=== PATIENT | male | born 1990 | race Two or more races ===

== ENCOUNTER 2018-02-19 17:23 | Emergency (ER) | payer SELFPAY ==
[2018-02-19] MEDS ORDERED: AMPICILLIN SOD/SULBACTAM 3 GM VIAL IV ONE (18:10)
--- NOTE | 2018-02-19 18:10 | ER Document Report ---
ED General - General Stated Complaint: ABCESS Time Seen by Provider: 02/19/18 17:58 Mode of Arrival: Ambulatory Information source: Patient, Legal Guardian, [facility] Records Notes: 27-year-old male with no reported past medical history presents in police custody from shelter with complaint of left-sided facial swelling that started 3 weeks prior to arrival. Patient states that he has associated pain, trismus, difficulty swallowing, chills, myalgias. Patient has not taken any medication for this. TRAVEL OUTSIDE OF THE [place] IN LAST 30 DAYS: No - HPI Onset: Other - 3 weeks Onset/Duration: Gradual, Persistent, Worse Quality of pain: Throbbing Severity: Moderate Associated symptoms: Body/muscle aches, Fever, Sore throat Exacerbated by: Denies Relieved by: Denies Similar symptoms previously: No Recently seen / treated by doctor: No - Related Data Allergies/Adverse Reactions: No Known Allergies Allergy (Verified 03/16/15 16:44) Past Medical History - General Information source: Patient, Law Enforcement, [facility] Records - Social History Smoking Status: Current Every Day Smoker Cigarette use (# per day): Yes - 2 Smoking Education Provided: Yes Frequency of alcohol use: None Drug Abuse: None Lives with: Other Family History: Reviewed & Not Pertinent - Medical History Medical History: Negative - Immunizations Hx Diphtheria, Pertussis, Tetanus Vaccination: Yes Review of Systems - Review of Systems Constitutional: Chills, Fever, Malaise EENT: Ear pain, Throat pain, Difficulty swallowing, Throat swelling, Mouth pain , Mouth swelling Cardiovascular: denies: Chest pain Respiratory: denies: Cough Gastrointestinal: denies: Nausea, Vomiting Genitourinary: denies: Dysuria Musculoskeletal: denies: Back pain, Muscle stiffness Skin: denies: Rash Hematologic/Lymphatic: No symptoms reported Neurological/Psychological: No symptoms reported -: Yes All other systems reviewed and negative Physical Exam - Vital signs Vitals: Temp Pulse Resp BP Pulse Ox 97.9 F 97 18 130/81 H 97 02/19/18 21:58 02/19/18 21:58 02/19/18 21:58 02/19/18 21:58 02/19/18 21:58 - Notes Notes: PHYSICAL EXAMINATION: GENERAL: Well-appearing, well-nourished and in no acute distress. HEAD: Atraumatic, normocephalic. EYES: Pupils equal round and reactive to light, extraocular movements intact, sclera anicteric, conjunctiva are normal. ENT: Nares patent, left-sided facial swelling, induration without fluctuance. Trismus. Fullness of the upper neck. no sublingual edema. no dental abscess/ fracture. no gum disease. NECK: Normal range of motion, supple with lymphadenopathy. No stridor LUNGS: Breath sounds clear to auscultation bilaterally and equal. No wheezes rales or rhonchi. HEART: Regular rate and rhythm without murmurs ABDOMEN: Soft, nontender, nondistended abdomen. No guarding, no rebound. No masses appreciated. Musculoskeletal: Normal range of motion, no pitting or edema. No cyanosis. NEUROLOGICAL: Cranial nerves grossly intact. Normal speech, normal gait. Normal sensory, motor exams PSYCH: Normal mood, normal affect. SKIN: Warm, Dry, normal turgor, no rashes or lesions noted. Course - Re-evaluation Re-evalutation: 02/20/18 18:42 27 y/o male presents with several days of dental pain, facial swelling. He is afebrile and well appearing. He does have signifcant left sided facial and neck swelling as well as mild trismus. Exam is without sublingual edema or dental infection. He is handling his secrertions and has no pain with ROM of the neck. He does not appear toxic, he is tolerating food and fluids. Laboratory 02/19/18 02/19/18 18:15 18:15 WBC 13.7 H RBC 5.75 H Hgb 17.1 H Hct 49.6 MCV 86 MCH 29.7 MCHC 34.4 RDW 12.8 Plt Count 283 Seg Neutrophils % 79.0 H Lymphocytes % 11.1 L Monocytes % 9.2 Eosinophils % 0.2 Basophils % 0.5 Absolute Neutrophils 10.8 H Absolute Lymphocytes 1.5 Absolute Monocytes 1.3 Absolute Eosinophils 0.0 Absolute Basophils 0.1 Sodium 140.5 Potassium 4.2 Chloride 100 Carbon Dioxide 23 Anion Gap 18 BUN 16 Creatinine 0.88 Est GFR ( Amer) > 60 Est GFR (Non-Af Amer) > 60 Glucose 81 Calcium 9.6 ALLERGIES No Known Allergies Allergy (Verified 03/16/15 16:44) AMBULATORY ORDERS Clindamycin HCl [Cleocin 300 mg Capsule] 600 mg PO Q6 #168 cap 02/19/18 Ibuprofen [Motrin 600 Mg Tablet] 600 mg PO TID #30 tablet 02/19/18 CLINICAL DATA Isolation Standard Condition Good Visit Reason ABCESS Language Syriac DISCHARGE ED Provider: JENNYFER BOSCH Status: Discharge Time Seen by Provider: 02/19/18 17:58 Condition: Good Triaged At: 02/19/18 17:30 Emergency Discharge Date/Time: 02/19/18 22:00 Emergency Discharge Disposition: OTHER Clinical Impression Facial infection Toothache Emergency Discharge Comment: Discharge Intervention Last Done Vital Signs (ED) 02/19/18 21:58 Query Result Temperature 97.9 F Temperature Source Oral Left Brachial -Pulse Rate 97 -Pulse Assessment Method Automatic Cuff Respiratory Rate 18 O2 Sat by Pulse Oximetry 97 Oxygen Delivery Method (includes room Room Air air) Left Upper Arm -Blood Pressure 130/81 -Blood Pressure Mean 97 -Blood Pressure Position Supine Discharge Documentation 02/19/18 22:00 Query Result Condition at discharge Improved Catheter clear to visual inspection Yes Pain Level 4 Vital signs performed within 30 minutes Yes of discharge? DC Transport Method Personal Vehicle DC Method Ambulated Good number for pt to be reached at patient in custody of [facility] Best time of day to call n/a Discharge instructions given to [facility] [place] Alvarado Limon Verbalized understanding of discharge Yes: discussed with [facility] instructions [place] Notes discharge papers and Rx given to [place]; patient calm and cooperative at time of dispo. Left Without Being Seen (LWBS) Left Against Medical Advice (AMA)/Eloped Instructions: Cellulitis ([facility]) Clindamycin ([facility]) Toothache ([facility]) Stand-Alone Forms: Prescriptions: Clindamycin HCl [Cleocin 300 mg Capsule] JENNYFER BOSCH Ibuprofen [Motrin 600 Mg Tablet] JENNYFER BOSCH Visit Report - Forms: - Referrals: - Additional text: If you are unable to take your antibiotics she must return immediately to the emergency room. 02/19/18 17:23 KAM SMITH ETHNICITY New Value: 02/19/18 17:23 KAM SMITH Old Value: New Value: 02/19/18 17:23 KAM SMITH NOP DATES: New Value: 03/16/15 02/19/18 17:23 KAM SMITH Where were you born? (State if in [place], Country if not) New Value: [place] 02/19/18 17:23 SARAHKAM New Family History New Value: Reviewed & Not Pertinent 02/19/18 17:23 SARAHKAM Does Patient have a Living Will on file? New Value: No 02/19/18 17:23 SARAHKAMJILLIAN Gold Does Patient have a Power of Interior Design Director on file? New Value: No 02/19/18 17:23 KAM SMITH Hx Diphtheria, Pertussis, Tetanus Vaccination New Value: Yes 02/19/18 17:23 SARAHKAM Preferred Language To Receive Medical Services New Value: Portuguese 02/19/18 17:23 KAM SMITH New Primary Language New Value: Portuguese 02/19/18 17:23 KAM SMITH TRAVEL OUTSIDE OF THE [place] IN LAST 30 DAYS New Value: No 02/19/18 17:23 KAM SMITH New ED Provider New Value: ERGRP - PROVIDER,ER 02/19/18 17:23 KAM SMITH New Status New Value: RECEIVED - Arrival 02/19/18 17:23 SARAHKAM New Disch Intervention New Value: [id number] - Vital Signs (ED) 02/19/18 17:23 SARAHKAM New Disch Intervention New Value: EDDISCHARG - Discharge Documentation 02/19/18 17:23 KAM SMITH New Disch Intervention New Value: EDLWBS - Left Without Being Seen (LWBS) 02/19/18 17:23 KAM SMITH New Disch Intervention New Value: EDAMA - Left Against Medical Advice (AMA)/Eloped 02/19/18 17:58 JOSH ROGERS New Secondary Language New Value: Syriac 02/19/18 17:58 JOSH ROGERS Old Value: New Value: 02/19/18 17:58 JOSH ROGERS New Are you currently receiving dialysis treatment? New Value: No 02/19/18 17:58 SUEJOSH New Has the [facility] authorized care at this Facility? New Value: No 02/19/18 17:58 JENNYFER BOSCH New Time Seen by MD New Value: 02/19/18 17:58 02/19/18 17:58 JENNYFER BOSCH Edit ED Provider Old Value: ERGRP - PROVIDER,ER New Value: CREMA - JENNYFER BOSCH E 02/19/18 17:58 JENNYFER BOSCH E Old Value: New Value: 02/19/18 17:58 JENNYFER BOSCH Edit Status Old Value: RECEIVED - Arrival New Value: EDWITPROV - With Provider 02/19/18 18:10 JENNYFER BOSCH E New Associated Symptoms New Value: Body/muscle aches 02/19/18 18:10 JENNYFER BOSCH E New Associated Symptoms New Value: Fever 02/19/18 18:10 JENNYFER BOSCH E New Associated Symptoms New Value: Sore throat 02/19/18 18:10 JENNYFER BOSCH E Old Value: New Value: 02/19/18 18:10 JENNYFER BOSCH E New EENT New Value: Ear pain 02/19/18 18:10 JENNYFER BOSCH E New EENT New Value: Throat pain 02/19/18 18:10 JENNYFER BOSCH E New EENT New Value: Difficulty swallowing 02/19/18 18:10 JENNYFER BOSCH New EENT New Value: Throat swelling 02/19/18 18:10 JENNYFER BOSCH E New EENT New Value: Mouth pain 02/19/18 18:10 JENNYFER BOSCH New EENT New Value: Mouth swelling 02/19/18 18:10 JENNYFER BOSCH New Neurological New Value: No symptoms reported 02/19/18 18:10 JENNYFER BOSCH E New Mode of Arrival New Value: Ambulatory 02/19/18 18:10 JENNYFER BOSCH New All other systems reviewed and negative New Value: Yes 02/19/18 18:10 JENNYFER BOSCH New Smoking Education Provided New Value: Yes 02/19/18 18:10 JENNYFER BOSCH New Smoking Status New Value: Current Every Day Smoker 02/19/18 18:59 GROVER MEDINA New Chew tobacco use (# tins/day) New Value: No 02/19/18 18:59 GROVER MEDINA Old Value: New Value: 02/19/18 18:59 GROVER MEDINA New Quality New Value: Constant 02/19/18 18:59 GROVER MEDINA New Quality New Value: Mild 02/19/18 18:59 GROVER MEDINA New Occurred New Value: 3 weeks 02/19/18 18:59 GROVER MEDINA New Pain Level New Value: 2 02/19/18 18:59 GROVER MEDINA Hx Peritoneal Dialysis New Value: No 02/19/18 18:59 GROVER MEDINA New CRE Precaution Screen New Value: Negative History 02/19/18 18:59 GROVER MEDINA New Skin Color New Value: Normal 02/19/18 18:59 GROVER MEDINA New Skin Moisture New Value: Dry 02/19/18 18:59 GROVER MEDINA New Skin Temperature New Value: Warm 02/19/18 18:59 GROVER MEDINA New Skin Turgor New Value: Rapid 02/19/18 18:59 GROVER MEDINA New Skin Texture New Value: Smooth 02/19/18 18:59 GROVER MEDINA New Medical History New Value: Denies 02/19/18 18:59 GROVER MEDINA Seeking Treatment Today For New Value: No Mental Health Issues 02/19/18 18:59 GROEVR MEDINA Arousable To New Value: Name 02/19/18 18:59 GROVER MEDINA Bebeto Coma Scale Eye Opening New Value: Spontaneous 02/19/18 18:59 GROVER MEDINA [place] Coma Scale Motor New Value: Obeys Commands 02/19/18 18:59 GROVER MEDINA Bebeto Coma Scale Total New Value: 15 02/19/18 18:59 GROVER MEDINA Bebeto Coma Scale Verbal New Value: Oriented 02/19/18 18:59 GROVER MEDINA Mood Description New Value: Calm 02/19/18 18:59 GROVER MEDINA Pupil [place] New Value: PERRLA 02/19/18 18:59 GROVER MEDINA Speech Pattern New Value: Clear 02/19/18 18:59 GROVER MEDINA Allergies Verified New Value: Yes 02/19/18 18:59 GROVER MEDINA Isolation New Value: Standard 02/19/18 18:59 GROVER MEDINA Recent History of the Following (Within Past 12 Months) New Value: No High Risk Factors 02/19/18 18:59 GROVER MEDINA New Moderate Risk Factors New Value: No Moderate Risk Factors 02/19/18 18:59 GROVER MEDINA New Level of Consciousness New Value: Awake 02/19/18 18:59 GROVER MEDINA New Level of Consciousness New Value: Alert 02/19/18 18:59 GROVER MEDINA New Level of Consciousness New Value: Appropriate 02/19/18 18:59 MEDINAGROVER SHEA New Orientation New Value: Oriented to Person 02/19/18 18:59 MEDINAGROVER New Orientation New Value: Oriented to Place 02/19/18 18:59 MEDINAGROVER New Orientation New Value: Oriented to Time 02/19/18 18:59 GROVER MEDINA New Upper Extremity Strength New Value: Equal 02/19/18 18:59 GROVER MEDINA New Lower Extremity Strength New Value: Equal 02/19/18 18:59 GROVER MEDINA New Lower Extremity Strength-Pulls New Value: Equal 02/19/18 18:59 GROVER MEDINA New Chest Expansion New Value: Symmetrical 02/19/18 18:59 GROVER MEDINA New Oxygen Delivery Method (includes room air) New Value: Room Air 02/19/18 18:59 GROVER MEDINA New Sputum Amount New Value: None 02/19/18 18:59 GROVER MEDINA New Surgical History New Value: Denies 02/19/18 18:59 GROVER MEDINA New Respiratory Depth New Value: Normal 02/19/18 18:59 GROVER MEDINA New Respiratory Effort New Value: Normal 02/19/18 18:59 GROVER MEDINA New Respiratory Pattern New Value: Normal 02/19/18 18:59 GROVER MEDINA New Triaged At New Value: 02/19/18 17:30 02/19/18 18:59 GROVER MEDINA Old Value: New Value: 02/19/18 19:00 GROVER MEDINA New Stroke/TIA Suspected New Value: No 02/19/18 19:00 GROVER MEIDNA Old Value: New Value: 02/19/18 19:00 GROVER MEDINA New Chief Complaint New Value: Abscess 02/19/18 19:00 GROVER MEDINA New Is This a Long Bone Pain Patient? New Value: No 02/19/18 19:01 HARDEEP GARDNER New Patient Location New Value: Patient in Room 02/19/18 19:01 HARDEEP GARDNER Old Value: New Value: 02/19/18 19:01 HARDEEP GARDNER New Hourly Rounding Complete New Value: Yes 02/19/18 19:01 HARDEEP GARDNER New Patient Activity New Value: Awake 02/19/18 19:01 HARDEEP GARDNER New Patient Activity New Value: Watching TV 02/19/18 19:01 HARDEEP GARDNER New Patient Condition New Value: No Chanes From Previous 02/19/18 19:01 HARDEEP GARDNER New Patient Food Processing Plant Manager Present New Value: Yes 02/19/18 19:42 FAVIOLA HIGH New Report Given To New Value: Nadeen High [facility] 02/19/18 19:42 FAVIOLA HIGH Old Value: New Value: 02/19/18 19:42 FAVIOLA HIGH New Report Received From New Value: Hardeep Gardner [facility] 02/19/18 19:42 FAVIOLA HIGH Other Activity New Value: [facility] deputy; patient in custody 02/19/18 19:42 FAVIOLA HIGH Old Value: New Value: 02/19/18 19:42 FAVIOLA HIGH Delete Patient Activity Old Value: Watching TV 02/19/18 21:45 JENNYFER BOSCH New Condition New Value: G - Good 02/19/18 21:45 JENNYFER BOSCH Old Value: New Value: Reg Type (Ho) ER - Emergency 02/19/18 21:45 JENNYFER BOSCH New Reg Type Dis Dispos New Value: OTH - OTHER 02/19/18 21:45 JENNYFER BOSCH New Clinical Impression New Value: [id number] 02/19/18 21:45 JENNYFER BOSCH New Clinical Impression New Value: [id number] 02/19/18 21:45 JENNYFER BOSCH New Addl Instructions New Value: If you are unable to take your antibiotics she must return immediately to the emergency room. 02/19/18 21:45 JENNYFER BOSCH New Patient Instructions New Value: EDCELLULITIS - Cellulitis ([facility]) 02/19/18 21:45 JENNYFER BOSCH New Patient Instructions New Value: EDCLINDAMYCIN - Clindamycin ([facility]) 02/19/18 21:45 JENNYFER BOSCH New Patient Instructions New Value: EDTOOTHACHE - Toothache ([facility]) 02/19/18 21:45 JENNYFER BOSCH New Sign Suppl Text New Value: EDDSCHFOOT - Discharge Footer 02/19/18 21:45 JENNYFER BOSCH Old Value: New Value: 02/19/18 21:45 JENNYFER BOSCH New Visit Suppl Text New Value: [facility] - Caring Counts Include [address] Information 02/19/18 21:45 JENNYFER BOSCH New Visit Suppl Text New Value: EDDSCHBASC - Discharge Basic 02/19/18 21:45 JENNYFER BOSCH Edit Status Old Value: EDWITPROV - With Provider New Value: EDORDERS - DC w/Orders 02/19/18 21:45 JENNYFER BOSCH Old Value: New Value: 02/19/18 21:59 FAVIOLA HIGH O2 Sat by Pulse Oximetry New Value: 97 02/19/18 21:59 FAVIOLA HIGH Old Value: New Value: 02/19/18 21:59 FAVIOLA HIGH Blood Pressure New Value: 130/81 02/19/18 21:59 FAVIOLA HIGH Blood Pressure Mean New Value: 97 02/19/18 21:59 FAVIOLA HIGH Blood Pressure Position New Value: Supine 02/19/18 21:59 FAVIOLA HIGH Pulse Rate New Value: 97 02/19/18 21:59 FAVIOLA HIGH Pulse Assessment Method New Value: Automatic Cuff 02/19/18 21:59 FAVIOLA HIGH Respiratory Rate New Value: 18 02/19/18 21:59 FAVIOLA HIGH Temperature New Value: 97.9 F 02/19/18 21:59 FAVIOLA HIGH Temperature Source New Value: Oral 02/19/18 22:02 FAVIOLA HIGH DC Method New Value: Ambulated 02/19/18 22:02 FAVIOLA HIGH Old Value: New Value: 02/19/18 22:02 FAVIOLA HIGH DC Transport Method New Value: Personal Vehicle 02/19/18 22:02 SAVITA,FAVIOLA New Vital signs performed within 30 minutes of discharge? New Value: Yes 02/19/18 22:02 FAVIOLA HIGH Edit Pain Level Old Value: 2 New Value: 4 Reg Type (Ho) ER - Emergency 02/19/18 22:02 FAVIOLA HIGH New Reg Type Dis Dt/Tm New Value: 02/19/18 22:00 02/19/18 22:02 FAVIOLA HIGH Old Value: New Value: 02/19/18 22:02 FAVIOLA HIGH Edit Status Old Value: EDORDERS - DC w/Orders New Value: EDDISCHG - Discharge ED ACTIVITY Status/Phase DtTm/Value User/Action With Provider 02/19/18 18:56:09 GROVER MEDINA Chief Complaint Abscess New 02/19/18 17:58:25 JENNYFER BOSCH Ed Provider JENNYFER BOSCH DO Edit Arrival 02/19/18 17:23:16 KAM SMITH Ed Provider PROVIDER, ER New Stated Complaint ABCESS New IMPRESSIONS Facial Bones CT 02/19/18 18:03 IMPRESSION: 1. Soft tissue swelling on the left as described. No abscess is seen. 2. Minimal maxillary sinus disease. 3. The right orbital floor is convex. This appears to represent developmental variant. There is intact bone. MEDICATIONS Discontinued Medications Ampicillin Sodium/Sulbactam Sodium (Unasyn Inj 3 Gm Vial) 3 gm IV IVBAG (ED) ONE Stop: 02/19/18 18:11 Last Admin: 02/19/18 18:26 Dose: 3 gm Clindamycin HCl (Cleocin 150 Mg Capsule) 300 mg PO NOW ONE Stop: 02/19/18 21:44 Last Admin: 02/19/18 21:52 Dose: 300 mg Hydromorphone HCl (Dilaudid Inj/Pf 2 Mg/Ml Ampule) 1 mg IV NOW ONE Stop: 02/19/18 18:12 Last Admin: 02/19/18 18:26 Dose: 1 mg Sodium Chloride (Nacl 0.9% 1000 Ml Iv Soln) 1,000 mls @ 0 mls/hr IV BOLUS ONE PRN Reason: Wide Open Stop: 02/19/18 18:12 Last Admin: 02/19/18 19:24 Dose: 1,000 ml Methylprednisolone Sodium Succinate (Solu-Medrol Inj/Pf 125 Mg/2 Ml Sdv) 125 mg IV NOW ONE Stop: 02/19/18 19:54 Last Admin: 02/19/18 20:13 Dose: 125 mg Metoclopramide HCl (Reglan Inj/Pf 10 Mg/2 Ml Sdv) 10 mg IV NOW ONE Stop: 02/19/18 18:12 Last Admin: 02/19/18 18:25 Dose: 10 mg Oxycodone/Acetaminophen (Percocet 5-325 Mg Tablet) 1 tab PO NOW ONE Stop: 02/19/18 21:43 Last Admin: 02/19/18 21:51 Dose: 1 tab MICROBIOLOGY 02/19/18 21:13 Blood Blood Culture - Pending 02/19/18 18:15 Blood Blood Culture - Pending NOTES 02/19/18 18:58 ED Nursing Note by GROVER MEDINA Pt presents to the ED from the shelter with DARIEL. Pt reports an abscess/swelling to the left cheek/face x 3 weeks without improvement. Pt has obvious swelling from his cheek to jaw and wanted to seek medical attention. Pt denies any injury and or any insect bites at this time. Pt claims pain with swallowing but denies any SOB and or difficulty breathing. Pt is AOx4 and able to speak in full sentences. Pt cooperative at this time. Initialized on 02/19/18 18:58 - END OF NOTE Microbiology 02/19/18 21:13 Blood Culture - Preliminary Blood NO GROWTH IN 24 HOURS 02/19/18 18:15 Blood Culture - Preliminary Blood NO GROWTH IN 24 HOURS Laboratory 02/19/18 02/19/18 18:15 18:15 WBC 13.7 H RBC 5.75 H Hgb 17.1 H Hct 49.6 MCV 86 MCH 29.7 MCHC 34.4 RDW 12.8 Plt Count 283 Seg Neutrophils % 79.0 H Lymphocytes % 11.1 L Monocytes % 9.2 Eosinophils % 0.2 Basophils % 0.5 Absolute Neutrophils 10.8 H Absolute Lymphocytes 1.5 Absolute Monocytes 1.3 Absolute Eosinophils 0.0 Absolute Basophils 0.1 Sodium 140.5 Potassium 4.2 Chloride 100 Carbon Dioxide 23 Anion Gap 18 BUN 16 Creatinine 0.88 Est GFR ( Amer) > 60 Est GFR (Non-Af Amer) > 60 Glucose 81 Calcium 9.[address] 02/19/18 18:03 IMPRESSION: 1. Soft tissue swelling on the left as described. No abscess is seen. 2. Minimal maxillary sinus disease. 3. The right orbital floor is convex. This appears to represent developmental variant. There is intact bone. 02/21/18 06:54 27-year-old male with no reported past medical history presents in police custody from shelter with complaint of left-sided facial swelling that started 3 weeks prior to arrival. Patient states that he has associated pain, trismus, difficulty swallowing, chills, myalgias. Patient has not taken any medication for this. Patient was seen by myself upon arrival. Vital signs were reviewed. Patient is afebrile, normotensive and not hypoxic. Patient does not appear toxic or dehydrated. They are in no acute distress. Previous medical records and nursing notes reviewed. Significant findings include CBC and a leukocytosis and anemia. CMP unremarkable patient drinks he he has been doing his ED course. On reevaluation he is now able to fully open his mouth. Again there is no sublingual edema, dental abscess, gum disease. CT of the face shows no distinct abscess. Patient will be discharged back to capacity with prescription for clindamycin. Discussed with the accompanying officer that it is very important that the patient be treated with antibiotics immediately once he returns to the facility. He assures me that this will not be a problem. Patient provided the opportunity to ask questions, and express concerns. Discharge instructions discussed. Patient is agreeable with discharge home. Return indications explained and discussed with the patient who displays understanding. Patient encouraged to return to the emergency department immediately with any concerns. Exam is not consistent with Cayden's angina, necrotizing gingivitis, dental abscess. 02/21/18 07:01 - Vital Signs Vital signs: Temp Pulse Resp BP Pulse Ox 97.9 F 97 18 130/81 H 97 02/19/18 21:58 02/19/18 21:58 02/19/18 21:58 02/19/18 21:58 02/19/18 21:58 27-year-old male with no reported past medical history presents in police custody from shelter with complaint of left-sided facial swelling that started 3 weeks prior to arrival. Patient states that he has associated pain, trismus, difficulty swallowing, chills, myalgias. Patient has not taken any medication for this. - Laboratory Result Diagrams: 02/19/18 18:15 02/19/18 18:15 Laboratory results interpreted by me: 02/19/18 18:15 WBC 13.7 H RBC 5.75 H Hgb 17.1 H Seg Neutrophils % 79.0 H Lymphocytes % 11.1 L Absolute Neutrophils 10.8 H - Diagnostic Test Radiology reviewed: Image reviewed, Reports reviewed Discharge - Discharge Clinical Impression: Facial infection, Tooth pain Condition: Good Disposition: OTHER Instructions: Cellulitis (OM), Clindamycin ([facility]), Toothache ([facility]) Additional Instructions: If you are unable to take your antibiotics she must return immediately to the emergency room. Prescriptions: Clindamycin HCl [Cleocin 300 mg Capsule] 600 mg PO Q6 #168 cap Ibuprofen [Motrin 600 Mg Tablet] 600 mg PO TID #30 tablet
[2018-02-19] MEDS ORDERED: HYDROMORPHONE HCL INJ/PF 2 MG/ML AMPULE IV ONE (18:11)
[2018-02-19] MEDS ORDERED: NORMAL SALINE 1000 ML 1,000 ML IV ONE (18:11)
[2018-02-19] MEDS ORDERED: METOCLOPRAMIDE HCL INJ/PF 10 MG/2 ML SDV IV ONE (18:11)
[2018-02-19 18:43] LABS: ABSOLUTE BASOPHILS # (AUTO) 0.1 10^3/uL (0.0-0.2); ABSOLUTE LYMPHOCYTES (AUTO) 1.5 10^3/uL (0.5-4.7); ABSOLUTE MONOCYTES (AUTO) 1.3 10^3/uL (0.1-1.4); ABSOLUTE NEUT (AUTO) 10.8 10^3/uL (1.7-8.2); BASOPHILS % (AUTO) 0.5 % (0-2); EOSINOPHILS % (AUTO) 0.2 % (0-6); HEMATOCRIT 49.6 % (37.9-51.0); HEMOGLOBIN 17.1 g/dL (13.5-17.0); LYMPHOCYTES % (AUTO) 11.1 % (13-45); MEAN CORPUSCULAR HEMOGLOBIN 29.7 pg (27.0-33.4); MEAN CORPUSCULAR HGB CONC 34.4 g/dL (32.0-36.0); MEAN CORPUSCULAR VOLUME 86 fl (80-97); MONOCYTES % (AUTO) 9.2 % (3-13); PLATELET COUNT 283 10^3/uL (150-450); RED BLOOD COUNT 5.75 10^6/uL (4.35-5.55); RED CELL DISTRIBUTION WIDTH 12.8 % (11.5-14.0); TOTAL CELLS COUNTED % (AUTO) 100 %; WHITE BLOOD COUNT 13.7 10^3/uL (4.0-10.5)
[2018-02-19 19:01] LABS: ANION GAP 18 (5-19); BLOOD UREA NITROGEN 16 mg/dL (7-20); CALCIUM 9.6 mg/dL (8.4-10.2); CARBON DIOXIDE 23 mmol/L (22-30); CHLORIDE 100 mmol/L (98-107); GLUCOSE 81 mg/dL (75-110); POTASSIUM 4.2 mmol/L (3.6-5.0); SODIUM 140.5 mmol/L (137-145)
--- NOTE | 2018-02-19 19:26 | RADIOLOGY REPORT (SQ) ---
EXAM DESCRIPTION: CT FACIAL AREA WITH COMPLETED DATE/TIME: 02/19/2018 6:48 pm REASON FOR STUDY: concern for facial abscess COMPARISON: None. TECHNIQUE: Post contrast images through the facial bones and orbits windowed for bone and soft tissu e. Additional coronal and sagittal reconstructed images reviewed. All images stored on PACS. All CT scanners at this facility use dose modulation, iterative reconstruction, and/or weight based d osing when appropriate to reduce radiation dose to as low as reasonably achievable (ALARA). [facility]: Dose Right [facility]: CareDose [facility]: Dose Right [facility]: Teradose 4D [facility]: [facility] CONTRAST TYPE AND DOSE: contrast/concentration: Isovue 370.00 mg/ml; Total Contrast Delivered: 50.0 ml; Total Saline Delivered: 40.0 ml RENAL FUNCTION: None required. The patient is less than 50 years old. RADIATION DOSE: CT Rad equipment meets quality standard of care and radiation dose reduction techniq ues were employed. CTDIvol: 30.4 mGy. DLP: 610 mGy-cm. . LIMITATIONS: None. FINDINGS: FACIAL BONES: No fracture or bone lesion. ORBITS: Intact. No fracture. Optic globes so are intact and symmetrical. The right orbital floor i s convex, extending into the right maxillary sinus, but there appears to be intact bone. PARANASAL SINUSES: Minimal mucoperiosteal changes in the maxillary sinuses. No nasal polyps. Maxillar y sinus outlets are patent. SOFT TISSUES: There is subcutaneous edema on the left in the mandibular region. No fluid collection is appreciated. There is no evidence of the dental abscess. INFERIOR BRAIN: Limited view. No acute findings. OTHER: No other significant finding. IMPRESSION: 1. Soft tissue swelling on the left as described. No abscess is seen. 2. Minimal maxillary sinus disease. 3. The right orbital floor is convex. This appears to represent developmental variant. There is in tact bone. TECHNICAL DOCUMENTATION: JOB ID: [id number] Quality ID # [id number]: Final reports with documentation of one or more dose reduction techniques (e.g., Au tomated exposure control, adjustment of the mA and/or kV according to patient size, use of iterative reconstruction technique) 2010 [employer]- All Rights Reserved Reading location - IP/workstation name: [email or web address]
[2018-02-19] MEDS ORDERED: METHYLPREDNISOLONE INJ 125 MG/2 ML SDV IV ONE (19:53)
[2018-02-19] MEDS ORDERED: OXYCODONE-ACETAMINOPHEN 5-325 MG TABLET PO ONE (21:42)
[2018-02-19] MEDS ORDERED: CLINDAMYCIN HCL 150 MG CAPSULE PO ONE (21:43)
[2018-02-19 21:59] VITALS: BP 130/81
== END 2018-02-19 22:00 | disposition other institution (70) ==
LOC: ER 17:23
DX: B99.8 Other infectious disease (principal); K08.9 Disorder of teeth and supporting structures, unspecified; R22.0 Localized swelling, mass and lump, head; F17.210 Nicotine dependence, cigarettes, uncomplicated
CPT/HCPCS: 99284; 96361; 96375; 96365; 36415; 87040; 85025; 80048; 70487; J2930; J2765; J1170; J7030; J0295